=== PATIENT | male | born 1990 | race Caucasian/White ===

== ENCOUNTER 2022-03-11 01:10 | Emergency (ER) | payer SELFPAY ==
[2022-03-11] MEDS ORDERED: ACETAMINOPHEN 325 MG TABLET (FP) PO ONE (01:40)
[2022-03-11 02:12] VITALS: BP 133/85; PULSE 50; TEMP 97.6; BMI 26.6
[2022-03-11] MEDS ORDERED: KETOROLAC TROMETHAMINE 30 MG/1 ML VIAL IM ONE (02:20)
[2022-03-11] MEDS ORDERED: KETOROLAC TROMETHAMINE 30 MG/1 ML VIAL ONE (02:20)
[2022-03-11] MEDS ORDERED: LIDOCAINE HCL 2% (20ML MULTI-DOSE VIAL) ONE (02:28)
[2022-03-11] MEDS ORDERED: BUPIVACAINE HCL/PF 0.5% (5MG/ML) 10 ML VIAL ONE (02:28)
== END 2022-03-11 04:22 | disposition home or self-care (01) ==
LOC: JER 01:10
PROC: 0RSJXZZ Reposition Right Shoulder Joint, External Approach (ICD-10-PCS; principal; 2022-03-11)
PROC: 3E023GC Introduction of Other Therapeutic Substance into Muscle, Percutaneous Approach (ICD-10-PCS; 2022-03-11)
DX: S43.004A Unspecified dislocation of right shoulder joint, initial encounter (principal); Y99.8 Other external cause status
CPT/HCPCS: 73030-TC-RT-FY; 99284-25

== ENCOUNTER 2023-04-11 14:25 | Emergency (ER) | payer OTHER ==
[2023-04-11 14:53] VITALS: PULSE 60; BMI 24.3
[2023-04-11] MEDS ORDERED: KETAMINE HCL 200 MG/20 ML VIAL IVPUSH ONE ×2 (15:10→15:32)
[2023-04-11] MEDS ORDERED: PROPOFOL 200 MG/20 ML VIAL IVPUSH ONE ×2 (15:13→15:58)
[2023-04-11] MEDS ORDERED: KETAMINE HCL 200 MG/20 ML VIAL ONE ×2 (15:15→15:38)
[2023-04-11] MEDS ORDERED: PROPOFOL 20 ML ONE (15:36)
[2023-04-11] MEDS ORDERED: KETOROLAC TROMETHAMINE 15 MG/ML VIAL IM ONE (16:28)
[2023-04-11 16:49] VITALS: BP 118/69; RESP 19; TEMP 98.2
[2023-04-11] MEDS ORDERED: KETOROLAC TROMETHAMINE 15 MG/ML VIAL ONE (16:52)
== END 2023-04-11 18:48 | disposition home or self-care (01) ==
LOC: JER 14:25
PROC: 0RSJXZZ Reposition Right Shoulder Joint, External Approach (ICD-10-PCS; principal; 2023-04-11)
PROC: 3E033NZ Introduction of Analgesics, Hypnotics, Sedatives into Peripheral Vein, Percutaneous Approach (ICD-10-PCS; 2023-04-11)
PROC: 3E033GC Introduction of Other Therapeutic Substance into Peripheral Vein, Percutaneous Approach (ICD-10-PCS; 2023-04-11)
PROC: 3E033NZ Introduction of Analgesics, Hypnotics, Sedatives into Peripheral Vein, Percutaneous Approach (ICD-10-PCS; 2023-04-11)
PROC: 3E0233Z Introduction of Anti-inflammatory into Muscle, Percutaneous Approach (ICD-10-PCS; 2023-04-11)
DX: S43.014A Anterior dislocation of right humerus, initial encounter (principal); X50.0XXA Overexertion from strenuous movement or load, initial encounter; Y93.B3 Activity, free weights
CPT/HCPCS: 73030-TC-RT-FY; 99284-25